=== PATIENT | male | born 1950 | race Two or more races ===

== ENCOUNTER 2025-09-03 12:10 | Emergency (ER) | payer OTHER ==
[~2025-09-03] VITALS: Ht 167.6 cm; Wt 63.5 kg
[2025-09-03] MEDS ORDERED: COZAAR100 MG (12:25)
[2025-09-03] MEDS ORDERED: AMLODIPINE-OLM1 EAC3 (12:25)
[2025-09-03] MEDS ORDERED: TOPROL XL25 M1 (12:25)
[2025-09-03] MEDS ORDERED: FAMOTIDINE/PF 20 MG/2 ML VIAL IV STA (13:11)
[2025-09-03] MEDS ORDERED: 0.9 % SODIUM CHLORIDE 1,000 ML IV STA (13:11)
[2025-09-03] MEDS ORDERED: FAMOTIDINE/PF 20 MG/2 ML VIAL ONE (14:07)
[2025-09-03 14:39] LABS: BASO % 0.6 % (0.1-1.2); EOS # 0.04 (0.04-0.54); EOS % 0.6 % (0.7-7.0); LYMPH # 1.65 (1.18-3.74); LYMPH % 24.4 % (19.3-53.1); MEAN PLATELET VOLUME 9.40 fl (9.4-12.4); MONO # 0.47 (0.24-0.82); MONO % 7.0 % (4.7-12.5); NEUT # 4.55 (1.56-6.13); NEUT % 67.3 % (34.0-71.1); RED CELL DISTRIBUTION WIDTH 12.7 % (11.6-14.4)
[2025-09-03 15:01] LABS: BUN CREA RATIO 13.0 (7.0-25.0); CREATININE SERUM 0.77 mg/dL (0.70-1.30); GFR 97.96; GLUCOSE FASTING 91.0 mg/dL (65-100); INR 1.03; OSMOLALITY SERUM 284.0 MOSM/KG (275-295)
== END 2025-09-03 16:57 | disposition home or self-care (01) ==
LOC: ER 12:11
PROVIDERS: General Practice
DX: R42 Dizziness and giddiness (principal); I95.89 Other hypotension; Z86.79 Personal history of other diseases of the circulatory system
CPT/HCPCS: 36415; 70450; 71045; 96365; 96366; 99283; J3490; J7030